=== PATIENT | female | born 1995 | race Caucasian/White ===

== ENCOUNTER → 2022-01-15 | Outpatient (CLI) | payer OTHER ==
[2022-01-16 05:07] LABS: RUBELLA AB IGG-REFLAB <0.90 index (Immune >0.99)
[2022-01-16 10:07] LABS: RUBEOLA (MEASLES) IGG 15.7 AU/mL (Immune >16.4)
== END | disposition home or self-care (01) ==
LOC: LABMN 10:57
PROVIDERS: ATTEND Internal Medicine
DX: Z02.1 Encounter for pre-employment examination (principal)
CPT/HCPCS: 86706; 86735; 86762; 86765; 86787

== ENCOUNTER 2022-02-21 05:32 | Emergency (ER) | payer MEDICAID ==
[~2022-02-21] VITALS: Ht 157.5 cm; Wt 95.4 kg
[2022-02-21 05:42] VITALS: BP 147/99
[2022-02-21] MEDS ORDERED: ESCI5SOL2 PO (05:46)
[2022-02-21 06:27] LABS: APPEARANCE,URINE CLEAR (CLEAR); BILIRUBIN,URINE NEGATIVE (NEGATIVE); GLUCOSE, URINE (UA) NEGATIVE (NEGATIVE); KETONES,URINE NEGATIVE (NEGATIVE); LEUKOCYTE ESTERASE ,URINE SMALL (NEGATIVE); NITRATE,URINE NEGATIVE (NEGATIVE); OCCULT BLOOD,URINE SMALL (NEGATIVE); PH,URINE 6.5 (5.0-8.0); PROTEIN,URINE NEGATIVE (NEGATIVE); SPECIFIC GRAVITIY, URINE 1.023 (1.003-1.030); UROBILINOGEN,URINE <=1.0 mg/dL (<=1.0)
[2022-02-21 06:55] LABS: BACTERIA,URINE Moderate /HPF (None Seen); SQUAMOUS EPITHELIAL CELL,UR Moderate /LPF (None Seen)
[2022-02-21] MEDS ORDERED: SULF-261 PO (07:45)
[2022-02-21] MEDS ORDERED: SULFAMETHOX/TRIMETH DS 800-160 MG/TABLET PO ONE (08:00)
== END 2022-02-21 08:36 | disposition home or self-care (01) ==
LOC: EMS 05:33
DX: N39.0 Urinary tract infection, site not specified (principal); F42.4 Excoriation (skin-picking) disorder; F41.9 Anxiety disorder, unspecified; Z98.890 Other specified postprocedural states; Z91.013 Allergy to seafood
CPT/HCPCS: 81001; 87086; 99283